=== PATIENT | female | born 1980 | race Hispanic/Latino ===

== ENCOUNTER 2016-05-14 22:04 | Emergency (ER) | payer OTHER ==
[~2016-05-14] VITALS: Ht 152.4 cm; Wt 54.4 kg
[2016-05-14 23:10] LABS: MEAN CORPUSCULAR HEMOGLOBIN 29.9 pg (27.0-33.0); MEAN CORPUSCULAR HGB CONC 33.2 g/dl (32.0-36.5); MEAN CORPUSCULAR VOLUME 89.9 fl (80.0-96.0); RED CELL DISTRIBUTION WIDTH 12.4 % (11.5-14.5); WHITE BLOOD COUNT 7.7 K/mm3 (4.0-10.0)
[2016-05-14 23:36] LABS: ANION GAP 8 MEQ/L (8-16); BLOOD UREA NITROGEN 18 MG/DL (7-18); CALCIUM LEVEL 8.4 MG/DL (8.5-10.1); CARBON DIOXIDE LEVEL 25 MEQ/L (21-32); CHLORIDE LEVEL 108 MEQ/L (98-107); CREATININE FOR GFR 0.51 MG/DL (0.55-1.02); GLOMERULAR FILTRATION RATE > 60.0 (>60); GLUCOSE, FASTING 87 MG/DL (70-105); HCG, SERUM QUANTITATIVE 107 MIU/ML; POTASSIUM SERUM 4.1 MEQ/L (3.5-5.1); SODIUM LEVEL 141 MEQ/L (136-145)
--- NOTE | 2016-05-15 00:30 | REPUSA ---
Clinical history: bleeding. Findings: Real-time transabdominal and transvaginal ultrasound images of the pelvis were obtained. An anteverted uterus is noted, measuring 9.4 x 6.7 x 3.7 cm. The uterus demonstrates normal echotexture and echogenicity. The endometrial stripe measures 7 mm and is within normal limit. There is no evide nce of an intrauterine gestation s. The right ovary measures 3.7 x 3.2 x 3.2 cm. There is a 2.6 cm co mplex right ovarian cyst noted. The left ovary measures 3.6 x 1.5 x 1.9 cm. There is a 1.5 cm simple left renal cyst. No adnexal masses are seen. Color Doppler flow is seen within both ovaries. There is a small on of free fluid in the left adnexa. Impression: 1. No evidence of any intrauterine gestation. 2. Complex likely hemorrhagic lesion in the right ovary. 3. Simple left ovarian cyst, likely a corpus luteum cyst. 4. Small amount of free fluid in the left adnexa. 5. With this conglomeration of findings, ectopic in the right ovary cannot be excluded. Dif ferential diagnosis also includes early and missed . Follow-up with serial serum be ta hCG levels is recommended for further evaluation. ER physician was notified of these findings at 12:21 AM on 05/15/2016.
[2016-05-15 01:23] LABS: AST/SGOT 12 U/L (15-37)
[2016-05-15 01:24] LABS: ALBUMIN/GLOBULIN RATIO 1.21 (1.00-1.93); ALKALINE PHOSPHATASE 62 U/L (45-117); ALT/SGPT 17 U/L (12-78); BILIRUBIN,DIRECT < 0.1 MG/DL (0.0-0.2); BILIRUBIN,TOTAL 0.1 MG/DL (0.2-1.0); TOTAL PROTEIN 7.3 GM/DL (6.4-8.2)
[2016-05-15] MEDS ORDERED: METHOTREXATE 50MG/2ML VIAL (J9260) IM SCH (01:30)
--- NOTE | 2016-05-15 02:38 | EDDOCDS ---
Physician Documentation [facility] Name: Jacquelin Rendon Age: 35 yrs Sex: Female : 1980 Arrival Date: 05/14/2016 Time: 22:04 Bed I1 / M1 Private MD: Other - Complete Info On Cds Disposition: 05/15/16 02:15 Discharged to Home/Self Care. Impression: Ectopic - right adnexal . - Condition is Stable. - Discharge Instructions: Ectopic , Methotrexate Treatment for an Ectopic . - Medication Reconciliation, Local Pharmacy Hours form. - Follow up: Marine Menjivar; When: Call to arrange an appointment; Reason: Recheck today's complaints, Continuance of care. - Problem is new. - Symptoms are unchanged. Historical: - Allergies: no known allergies; - Home Meds: 1. fluoxetine 20 mg Oral cap 1 cap once daily (Last dose: 05/14/2016) - PMHx: Depression; - PSHx: Cesearean Section; - Social history: Smoking status: Patient uses tobacco products, current every day smoker. Patient uses alcohol occasionally. Patient/guardian denies using street drugs, No barriers to communication noted, The patient speaks fluent Italian, Speaks appropriately for age. - Family history: Not pertinent. - : The pt / caregiver states he / she is not on anticoagulants. Home medication list is obtained from the patient. - Exposure Risk Screening:: None identified. 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 (152.40 cm); Pain 04/13; 05/15 00:51 Weight 54.43 kg / 120 lbs; kas2 02:32 BP 115 / 63; Pulse 80; Resp 16; Temp 99.1; Pulse Ox 97% on R/A; Pain 04/13; ld5 00:51 Body Mass Index 23.44 (54.43 kg, 152.40 cm) kas2 MDM: 05/14 22:55 Complete Blood Count Ordered. EDMS 22:55 Hcg, Serum Quantitative Ordered. EDMS 22:55 Urinalysis Ordered. EDMS 22:55 BMP Ordered. EDMS 22:56 US 1st trimester Ordered. EDMS 22:56 Type & Screen Ordered. EDMS 23:10 Financial registration complete. pm4 23:21 COUNTS INCLUDE 234 BEDS AT THE [facility] Payment Agreement was scanned into [employer] and attached to record. pm4 23:42 Urinalysis Reviewed. mo1 23:42 Hcg, Serum Quantitative Reviewed. mo1 23:42 Complete Blood Count Reviewed. mo1 23:42 BMP Reviewed. mo1 23:58 TRANSVAGINAL US Ordered. EDMS 05/15 00:10 Type & Screen Reviewed. mo1 00:58 LIVER PROFILE Ordered. EDMS 01:00 BMP Reviewed. mo1 01:04 Consents was scanned into [employer] and attached to record. ajs 01:16 LIVER PROFILE Reviewed. ck7 01:16 Hcg, Serum Quantitative Reviewed. ck7 01:16 US 1st trimester Reviewed. ck7 01:49 Other: Methotrexate order was scanned into [employer] and attached to record. slm 01:51 Misc. Nursing Order ordered. ld5 01:51 BMP Reviewed. ck7 01:51 LIVER PROFILE Reviewed. ck7 01:51 Hcg, Serum Quantitative Reviewed. ck7 Signatures: Dispatcher [employer] EDMS Jenny Mike RN RN ld5 Hoa Nicole Christopher, RPA-C RPA-Cck7 Kacey Munguia, RN RN ttb Sohan Elder, PA PA mo1 Myah Contreras,SERVICE STATION MANAGER SERVICE STATION MANAGER slm Rufus Rodriguez, Reg Reg pm4 The chart was reviewed and I authenticate all verbal orders and agree with the evaluation and treatment provided.Corrections: (The following items were deleted from the chart) 05/14 22:54 22:54 Undress patient appropriately for examination ordered. mo1 mo1 05/15 00:57 00:55 LIVER PROFILE+LAB ordered. EDFL EDMS Attachments: 05/14 23:21 COUNTS INCLUDE 234 BEDS AT THE [facility] Payment Agreement pm4 MTDD
--- NOTE | 2016-05-15 02:38 | EDDOCDS ---
Nurse's Notes [facility] Name: Jacquelin Rendon Age: 35 yrs Sex: Female : 1980 Arrival Date: 05/14/2016 Time: 22:04 Bed I1 / M1 Private MD: Other - Complete Info On Cds Diagnosis: Ectopic -right adnexal Presentation: 05/14 22:08 Presenting complaint: Patient states: she was diagnosed with miscarriage 2 weeks ago. ttb Still having vaginal bleeding : however HCG levels increased slightly today from previous reading 2 weeks ago. Pt denies pain but was advised to come to r/o ectopic. Risk factors: the patient reports moderate vaginal bleeding. Adult Sepsis Screening: The patient does not have new or worsening altered mentation. Patient's respiratory rate is less than 22. Systolic blood pressure is greater than 100. Patient has a qSOFA score of 0- Negative Sepsis Screen. Suicide/Homicide risk assessment- the patient denies having any suicidal and/or homicidal ideations and does not present with any other emotional, behavioral or mental health complaints. 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 Transition of care: patient was not received from another setting of care. 22:08 Acuity: MATTEO Level 3 ttb 22:08 Method Of Arrival: Walkin/Carried/Asstd ttb Triage Assessment: 22:11 General: Appears in no apparent distress, well nourished, well groomed, Behavior is ttb appropriate for age, cooperative, pleasant. Pain: Denies pain. HIV screening NA for this visit Offered previously. Neurological: Level of Consciousness is awake, alert. Cardiovascular: Chest pain is denied. Respiratory: No deficits noted. Airway is patent Denies cough, shortness of breath. GI: Denies nausea, vomiting, pain. : Reports vaginal bleeding that is moderate flow light flow. Derm: Skin is normal. 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 fluoxetine 20 mg Oral cap 1 cap once daily (Last dose: 05/14/2016) - PMHx: Depression; - PSHx: Cesearean Section; - Social history: Smoking status: Patient uses tobacco products, current every day smoker. Patient uses alcohol occasionally. Patient/guardian denies using street drugs, No barriers to communication noted, The patient speaks fluent Syrian, Speaks appropriately for age. - Family history: Not pertinent. - : The pt / caregiver states he / she is not on anticoagulants. Home medication list is obtained from the patient. - Exposure Risk Screening:: None identified. Screenin/11 00:04 Screening information is obtained from the patient. Fall risk: No risks identified. kas2 Assistance ADL's: requires no assistance with activities of daily living. Abuse/DV Screen: The patient / caregiver reports he/she is: not in a situation that causes fear, pain or injury. Nutritional screening: No deficits noted. Advance Directives: Currently, there is no health care proxy. There is no active DNR order. There is no living will. There is no Power of Geriatrics Physician. home support is adequate. Assessment: 00:03 General: Appears in no apparent distress, uncomfortable, well nourished, well groomed, kas2 Behavior is appropriate for age, cooperative. Pain: Location: abdomen Pain currently is 4 out of 10 on a pain scale. Neurological: Level of Consciousness is awake, alert, Oriented to person, place, time. Cardiovascular: Rhythm is regular. Respiratory: Airway is patent Respiratory effort is even, unlabored, Respiratory pattern is regular, symmetrical. GI: Abdomen is flat, non- distended Bowel sounds present X 4 quads. Abd is tender to palpation X 4 quads. Derm: Skin is intact, Skin is dry, Skin is normal, Skin temperature is warm. 00:42 General: OB physician in to assess patient at this time.. kas2 00:42 General: Dr. Menjivar in to assess pt. ld5 01:51 General: Methotrexate administered. Will monitor pt for 20 minutes prior to discharge. ld5 02:32 General: Pt sitting up in bed. No apparent distress. No signs/symptoms of reaction to ld5 methotrexate. Methotrexate discharge paperwork discussed with pt and all questions answered. Pt aware of follow-up plans. Vital Signs: 05/14 22:06 BP 120 / 68; Pulse 87; Resp 16; Temp 98.6(T); Pulse Ox 100% on R/A; Weight 54.43 kg; sew Height 60 in. (152.40 cm); Pain 04/13; 05/15 00:51 Weight 54.43 kg; kas2 02:32 BP 115 / 63; Pulse 80; Resp 16; Temp 99.1; Pulse Ox 97% on R/A; Pain 1/10; ld5 00:51 Body Mass Index 23.44 (54.43 kg, 152.40 cm) [facility] Vitals: 05/14 22:06 Log In Time: May 14, 2016 at 22:05. [facility] [place] ED Course: 22:06 Patient visited by Ting Inman. sew 22:06 Other - Complete Info On Cds is Private Physician. sew 22:06 Patient moved to Waiting sew 22:07 Patient visited by Ting Inman. sew 22:07 Patient moved to Pre RCE sew 22:10 Triage Initiated ttb 22:12 Patient visited by Kacey Munguia RN. ttb 22:12 Patient moved to Triage 1 ttb 22:40 Patient moved to I7 / kas2 22:42 Sohan Elder PA is PHCP. mo1 22:42 Edy Menendez DO is Attending Physician. mo1 22:42 Patient moved to Triage 1 ajs 22:43 Patient visited by Sohan Elder PA. mo1 23:07 BMP Sent. mcp 23:07 Complete Blood Count Sent. mcp 23:07 Hcg, Serum Quantitative Sent. mcp 23:07 Type & Screen Sent. mcp 23:07 Urinalysis Sent. mcp 23:08 Patient moved to TR1 mcp 23:19 Patient name changed from Jacquelin\S\\S\Justice\S\ to Jacquelin\S\Smita\S\Justice. EDMS 23:21 [place] Payment Agreement was scanned into [employer] and attached to record. pm4 23:47 Patient moved to I5 / M5 ld5 23:53 Patient visited by Marilee Forbes RN. kas2 02 00:04 Patient visited by Marilee Forbes RN. kas2 00:12 Patient moved to I1 / M1 ajs 00:40 Assist provider with pelvic exam: Performed by Sohan OWENS Patient tolerated ld5 well. 00:42 Patient visited by Jenny Mike,YARELI. ld5 00:42 Patient visited by Marilee Forbes RN. kas2 00:46 US 1st trimester Returned. EDMS 00:52 Patient visited by Marilee Forbes RN. kas2 01:04 Patient visited by Hoa Nicole. ajs 01:04 Consents was scanned into [employer] and attached to record. ajs 01:13 PHCP role handed off by Sohan Elder PA ck7 01:13 Aidan Bowen RPA-C is PHCP. ck7 01:38 Patient visited by Marilee Forbes RN. kas2 01:49 Other: Methotrexate order was scanned into [employer] and attached to record. slm 01:52 Patient visited by Jenny Mike RN. ld5 02:15 Marine Menjivar MD is Referral Physician. ck7 02:32 The patient / caregiver is instructed regarding the plan of care and ED course. Patient ld5 has correct armband on for positive identification. 02:32 No IV's were initiated during this patient's visit. ld5 02:36 Patient visited by Jenny Mike RN. ld5 Attachments: 05/15 01:04 Consents ajs Order Results: Lab Order: Complete Blood Count; SPEC'M 05/14/16 23:01 Test: WHITE BLOOD COUNT; Value: 7.7; Range: 4.0-10.0; Units: K/mm3; Status: F Test: RED BLOOD COUNT; Value: 4.19; Range: 4.00-5.40; Units: M/mm3; Status: F Test: HEMOGLOBIN; Value: 12.5; Range: 12.0-16.0; Units: g/dl; Status: F Test: HEMATOCRIT; Value: 37.7; Range: 36.0-47.0; Units: %; Status: F Test: MEAN CORPUSCULAR VOLUME; Value: 89.9; Range: 80.0-96.0; Units: fl; Status: F Test: MEAN CORPUSCULAR HEMOGLOBIN; Value: 29.9; Range: 27.0-33.0; Units: pg; Status: F Test: MEAN CORPUSCULAR HGB CONC; Value: 33.2; Range: 32.0-36.5; Units: g/dl; Status: F Test: RED CELL DISTRIBUTION WIDTH; Value: 12.4; Range: 11.5-14.5; Units: %; Status: F Test: PLATELET COUNT, AUTOMATED; Value: 251; Range: 150-450; Units: k/mm3; Status: F Lab Order: Hcg, Serum Quantitative; SPEC'M 05/14/16 23:01 Test: HCG, SERUM QUANTITATIVE; Value: 107; Units: MIU/ML; Status: F Test Note: ; GESTATIONAL AGE APPROXIMATE HCG RANGE (MIU/ML) 0.2-1 WEEK 5-50 1-2 WEEKS 50-500 2-3 WEEKS 100-5,000 3-4 WEEKS 500-10,000 4-5 WEEKS 1,000-50,000 5-6 WEEKS 10,000-100,000 6-8 WEEKS 15,000-200,000 2-3 MONTHS 10,000-100,000 NON FEMALES LESS THAN 3.0 Patient samples may contain human heterophilic antibodies that could react with immunoassays to give falsely elevated or depressed results. This assay has been designed to minimize interference from heterophilic antibodies. Elevated hCG levels have also been associated with trophoblastic disease and nontrophoblastic neoplasms. The possibility of having these diseases should be considered before a diagnosis of is made. This test is not intended for use as a surrogate marker for aiding in the diagnosis or monitoring the treatment of cancer patients. [employer] [place] methodology. Lab Order: Type & Screen; [facility] 05/14/16 23: Test: BLOOD TYPE; Value: O POS; Status: F Test: AB SCREEN (INDIRECT LAZARO)VIS; Value: NEGATIVE; Status: F Lab Order: Urinalysis; [facility] 05/14/16 23: Test: APPEARANCE, URINE; Value: CLEAR; Range: CLEAR; Status: F Test: COLOR, URINE; Value: YELLOW; Range: YELLOW; Status: F Test: PH,URINE; Value: 5.0; Range: 5.0-9.0; Units: UNITS; Status: F Test: SPECIFIC GRAVITY URINE AUTO; Value: 1.027; Range: 1.002-1.035; Status: F Test: PROTEIN, URINE AUTO; Value: NEGATIVE; Range: NEGATIVE; Units: mg/dL; Status: F Test: GLUCOSE, URINE (UA) AUTO; Value: NEGATIVE; Range: NEGATIVE; Units: mg/dL; Status: F Test: KETONE, URINE AUTO; Value: NEGATIVE; Range: NEGATIVE; Units: mg/dL; Status: F Test: UROBILINOGEN, URINE AUTO; Value: 0.2; Range: 0.0-2.0; Units: mg/dL; Status: F Test: BILIRUBIN, URINE AUTO; Value: NEGATIVE; Range: NEGATIVE; Status: F Test: NITRITE, URINE AUTO; Value: NEGATIVE; Range: NEGATIVE; Status: F Test: LEUKOCYTE ESTERASE, URINE AUTO; Value: NEGATIVE; Range: NEGATIVE; Status: F Test: BLOOD, URINE BLOOD; Value: NEGATIVE; Range: NEGATIVE; Status: F Test: WBC, URINE AUTO; Value: 1; Range: 0-3; Units: /HPF; Status: F Test: RBC, URINE AUTO; Value: 3; Range: 0-3; Units: /HPF; Status: F Test: BACTERIA, URINE AUTO; Value: NEGATIVE; Range: NEGATIVE; Status: F Test: SQUAMOUS EPITHELIAL CELL UR AU; Value: 0; Range: 0-6; Units: /HPF; Status: F Test: MUCUS, URINE; Value: SMALL; Range: NEGATIVE; Status: F Test: HYALINE CAST, URINE AUTO; Value: 0; Range: 0-1; Units: /LPF; Status: F Lab Order: [facility]; SPEC'M 05/14/16 23:01 Test: GLUCOSE, FASTING; Value: 87; Range: 70-105; Units: MG/DL; Status: F Test: BLOOD UREA NITROGEN; Value: 18; Range: 7-18; Units: MG/DL; Status: F Test: CREATININE FOR GFR; Value: 0.51; Range: 0.55-1.02; Abnormal: Below low normal; Units: MG/DL; Status: F Test: GLOMERULAR FILTRATION RATE; Value: > 60.0; Range: >60; Status: F Test: SODIUM LEVEL; Value: 141; Range: 136-145; Units: MEQ/L; Status: F Test: POTASSIUM SERUM; Value: 4.1; Range: 3.5-5.1; Units: MEQ/L; Status: F Test: CHLORIDE LEVEL; Value: 108; Range: 98-107; Abnormal: Above high normal; Units: MEQ/L; Status: F Test: CARBON DIOXIDE LEVEL; Value: 25; Range: 21-32; Units: MEQ/L; Status: F Test: ANION GAP; Value: 8; Range: 8-16; Units: MEQ/L; Status: F Test: CALCIUM LEVEL; Value: 8.4; Range: 8.5-10.1; Abnormal: Below low normal; Units: MG/DL; Status: F Test Note: ; Units are mL/min/1.73 m2 Chronic Kidney Disease Staging per NKF: Stage I & II GFR >=60 Normal to Mildly Decreased Stage III GFR 30-59 Moderately Decreased Stage IV GFR 15-29 Severely Decreased Stage V GFR <15 Very Little GFR Left ESRD GFR <15 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 Lab Order: LIVER PROFILE; [facility] 05/14/16 23:01 Test: AST/SGOT; Value: 12; Range: 15-37; Abnormal: Below low normal; Units: U/L; Status: F Test: ALT/SGPT; Value: 17; Range: 12-78; Units: U/L; Status: F Test: ALKALINE PHOSPHATASE; Value: 62; Range: 45-117; Units: U/L; Status: F Test: BILIRUBIN,TOTAL; Value: 0.1; Range: 0.2-1.0; Abnormal: Below low normal; Units: MG/DL; Status: F Test: BILIRUBIN,DIRECT; Value: < 0.1; Range: 0.0-0.2; Units: MG/DL; Status: F Test: TOTAL PROTEIN; Value: 7.3; Range: 6.4-8.2; Units: GM/DL; Status: F Test: ALBUMIN; Value: 4.0; Range: 3.2-5.2; Units: GM/DL; Status: F Test: ALBUMIN/GLOBULIN RATIO; Value: 1.21; Range: 1.00-1.93; Status: F Radiology Order: US 1st trimester Test: US 1st trimester REASON FOR EXAMINATION: recent miscarriage, still increasing hcg; ; Clinical history: bleeding.; Findings: Real-time transabdominal and transvaginal ultrasound images of the pelvis were obtained. An; anteverted uterus is noted, measuring 9.4 x 6.7 x 3.7 cm. The uterus demonstrates normal echotexture; and echogenicity. The endometrial stripe measures 7 mm and is within normal limit. There is no evide; nce of an intrauterine gestation s. The right ovary measures 3.7 x 3.2 x 3.2 cm. There is a 2.6 cm co; mplex right ovarian cyst noted. The left ovary measures 3.6 x 1.5 x 1.9 cm. There is a 1.5 cm simple; left renal cyst. No adnexal masses are seen. Color Doppler flow is seen within both ovaries. There is; a small on of free fluid in the left adnexa.; Impression:; 1. No evidence of any intrauterine gestation.; 2. Complex likely hemorrhagic lesion in the right ovary.; 3. Simple left ovarian cyst, likely a corpus luteum cyst.; 4. Small amount of free fluid in the left adnexa.; 5. With this conglomeration of findings, ectopic in the right ovary cannot be excluded. Dif; ferential diagnosis also includes early and missed . Follow-up with serial serum be; ta hCG levels is recommended for further evaluation.; ER physician was notified of these findings at 12:21 AM on 05/15/2016.; ; Outcome: 02:15 Discharge ordered by Provider. ck7 02:36 Discharge Assessment: Patient awake, alert and oriented x 3. No cognitive and/or ld5 functional deficits noted. Patient verbalized understanding of disposition instructions. patient administered narcotics - no. The following High Risk Discharge criteria are identified: None. Discharged to home ambulatory. Condition: stable. Discharge instructions given to patient, Instructed on discharge instructions, follow up and referral plans. Demonstrated understanding of instructions, Pt was receptive of discharge instructions/ teaching. Ultrasound Study completed. Property :Personal belongings accompany Pt. 02:36 Patient left the ED. ld5 Signatures: Dispatcher [employer] EDNat Lan RN Jenny Acosta mcp, RN RN [id number] Hoa Nicole Christopher, EFREM-C RPA-Cck7 Ting Inman Teresa RN RN ttb Sohan Elder PA PA mo1 Myah Contreras LPN LPN slm Smith, KimRN RN summer2 Rufus Rodriguez, Reg Reg pm4 Corrections: (The following items were deleted from the chart) 00:57 00:55 LIVER PROFILE+LAB sent. [facility] JENY MTDD
--- NOTE | 2016-05-17 03:37 | EDDOCDS ---
Nurse's Notes [facility] Name: Jacquelin Rendon Age: 35 yrs Sex: Female : 1980 Arrival Date: 05/14/2016 Time: 22:04 Bed I1 / M1 Private MD: Other - Complete Info On Cds Diagnosis: Ectopic -right adnexal Presentation: 05/14 22:08 Presenting complaint: Patient states: she was diagnosed with miscarriage 2 weeks ago. ttb Still having vaginal bleeding : however HCG levels increased slightly today from previous reading 2 weeks ago. Pt denies pain but was advised to come to r/o ectopic. Risk factors: the patient reports moderate vaginal bleeding. Adult Sepsis Screening: The patient does not have new or worsening altered mentation. Patient's respiratory rate is less than 22. Systolic blood pressure is greater than 100. Patient has a qSOFA score of 0- Negative Sepsis Screen. Suicide/Homicide risk assessment- the patient denies having any suicidal and/or homicidal ideations and does not present with any other emotional, behavioral or mental health complaints. 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 Transition of care: patient was not received from another setting of care. 22:08 Acuity: MATTEO Level 3 ttb 22:08 Method Of Arrival: Walkin/Carried/Asstd ttb Triage Assessment: 22:11 General: Appears in no apparent distress, well nourished, well groomed, Behavior is ttb appropriate for age, cooperative, pleasant. Pain: Denies pain. HIV screening NA for this visit Offered previously. Neurological: Level of Consciousness is awake, alert. Cardiovascular: Chest pain is denied. Respiratory: No deficits noted. Airway is patent Denies cough, shortness of breath. GI: Denies nausea, vomiting, pain. : Reports vaginal bleeding that is moderate flow light flow. Derm: Skin is normal. 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 fluoxetine 20 mg Oral cap 1 cap once daily (Last dose: 05/14/2016) - PMHx: Depression; - PSHx: Cesearean Section; - Social history: Smoking status: Patient uses tobacco products, current every day smoker. Patient uses alcohol occasionally. Patient/guardian denies using street drugs, No barriers to communication noted, The patient speaks fluent [place], Speaks appropriately for age. - Family history: Not pertinent. - : The pt / caregiver states he / she is not on anticoagulants. Home medication list is obtained from the patient. - Exposure Risk Screening:: None identified. Screenin/11 00:04 Screening information is obtained from the patient. Fall risk: No risks identified. kas2 Assistance ADL's: requires no assistance with activities of daily living. Abuse/DV Screen: The patient / caregiver reports he/she is: not in a situation that causes fear, pain or injury. Nutritional screening: No deficits noted. Advance Directives: Currently, there is no health care proxy. There is no active DNR order. There is no living will. There is no Power of Welding Rod Coater. home support is adequate. Assessment: 00:03 General: Appears in no apparent distress, uncomfortable, well nourished, well groomed, kas2 Behavior is appropriate for age, cooperative. Pain: Location: abdomen Pain currently is 4 out of 10 on a pain scale. Neurological: Level of Consciousness is awake, alert, Oriented to person, place, time. Cardiovascular: Rhythm is regular. Respiratory: Airway is patent Respiratory effort is even, unlabored, Respiratory pattern is regular, symmetrical. GI: Abdomen is flat, non- distended Bowel sounds present X 4 quads. Abd is tender to palpation X 4 quads. Derm: Skin is intact, Skin is dry, Skin is normal, Skin temperature is warm. 00:42 General: OB physician in to assess patient at this time.. kas2 00:42 General: Dr. Menjivar in to assess pt. ld5 01:51 General: Methotrexate administered. Will monitor pt for 20 minutes prior to discharge. ld5 02:32 General: Pt sitting up in bed. No apparent distress. No signs/symptoms of reaction to ld5 methotrexate. Methotrexate discharge paperwork discussed with pt and all questions answered. Pt aware of follow-up plans. Vital Signs: 05/14 22:06 BP 120 / 68; Pulse 87; Resp 16; Temp 98.6(T); Pulse Ox 100% on R/A; Weight 54.43 kg; sew Height 60 in. (152.40 cm); Pain 04/13; 05/15 00:51 Weight 54.43 kg; kas2 02:32 BP 115 / 63; Pulse 80; Resp 16; Temp 99.1; Pulse Ox 97% on R/A; Pain 1/10; ld5 00:51 Body Mass Index 23.44 (54.43 kg, 152.40 cm) [facility] Vitals: 05/14 22:06 Log In Time: May 14, 2016 at 22:05. [facility] ED Course: 22:06 Patient visited by Ting Inman. sew 22:06 Other - Complete Info On Cds is Private Physician. sew 22:06 Patient moved to Waiting sew 22:07 Patient visited by Ting Inman. sew 22:07 Patient moved to Pre RCE sew 22:10 Triage Initiated ttb 22:12 Patient visited by Kacey Munguia RN. ttb 22:12 Patient moved to Triage 1 ttb 22:40 Patient moved to I7 / kas2 22:42 Sohan Elder PA is PHCP. mo1 22:42 Edy Menendez DO is Attending Physician. mo1 22:42 Patient moved to Triage 1 ajs 22:43 Patient visited by Sohan Elder PA. mo1 23:07 BMP Sent. mcp 23:07 Complete Blood Count Sent. mcp 23:07 Hcg, Serum Quantitative Sent. mcp 23:07 Type & Screen Sent. mcp 23:07 Urinalysis Sent. mcp 23:08 Patient moved to TR1 mcp 23:19 Patient name changed from Jacquelin\S\\S\Justice\S\ to Jacquelin\S\Smita\S\Justice. EDMS 23:21 [facility] Payment Agreement was scanned into [employer] and attached to record. pm4 23:47 Patient moved to I5 / M5 ld5 23:53 Patient visited by Marilee Forbes RN. kas2 02 00:04 Patient visited by Marilee Forbes RN. kas2 00:12 Patient moved to I1 / M1 ajs 00:40 Assist provider with pelvic exam: Performed by Sohan OWENS Patient tolerated ld5 well. 00:42 Patient visited by Jenny Mike,YARELI. ld5 00:42 Patient visited by Marilee Forbes RN. kas2 00:46 US 1st trimester Returned. EDMS 00:52 Patient visited by Marilee Forbes RN. kas2 01:04 Patient visited by Hoa Nicole. ajs 01:04 Consents was scanned into [employer] and attached to record. ajs 01:13 PHCP role handed off by Sohan Elder PA ck7 01:13 Aidan Bowen RPA-C is PHCP. ck7 01:38 Patient visited by Marilee Forbes RN. kas2 01:49 Other: Methotrexate order was scanned into [employer] and attached to record. slm 01:52 Patient visited by Jenny Mike RN. ld5 02:15 Marine Menjivar MD is Referral Physician. ck7 02:32 The patient / caregiver is instructed regarding the plan of care and ED course. Patient ld5 has correct armband on for positive identification. 02:32 No IV's were initiated during this patient's visit. ld5 02:36 Patient visited by Jenny Mike RN. ld5 10:51 T-Sheet-- Draft Copy was scanned into Green[employer] and attached to record. gb Attachments: 05/15 01:04 Consents ajs Order Results: Lab Order: Complete Blood Count; SPEC'M 05/14/16 23:01 Test: WHITE BLOOD COUNT; Value: 7.7; Range: 4.0-10.0; Units: K/mm3; Status: F Test: RED BLOOD COUNT; Value: 4.19; Range: 4.00-5.40; Units: M/mm3; Status: F Test: HEMOGLOBIN; Value: 12.5; Range: 12.0-16.0; Units: g/dl; Status: F Test: HEMATOCRIT; Value: 37.7; Range: 36.0-47.0; Units: %; Status: F Test: MEAN CORPUSCULAR VOLUME; Value: 89.9; Range: 80.0-96.0; Units: fl; Status: F Test: MEAN CORPUSCULAR HEMOGLOBIN; Value: 29.9; Range: 27.0-33.0; Units: pg; Status: F Test: MEAN CORPUSCULAR HGB CONC; Value: 33.2; Range: 32.0-36.5; Units: g/dl; Status: F Test: RED CELL DISTRIBUTION WIDTH; Value: 12.4; Range: 11.5-14.5; Units: %; Status: F Test: PLATELET COUNT, AUTOMATED; Value: 251; Range: 150-450; Units: k/mm3; Status: F Lab Order: Hcg, Serum Quantitative; [facility] 05/14/16 23:01 Test: HCG, SERUM QUANTITATIVE; Value: 107; Units: MIU/ML; Status: F Test Note: ; GESTATIONAL AGE APPROXIMATE HCG RANGE (MIU/ML) 0.2-1 WEEK 5-50 1-2 WEEKS 50-500 2-3 WEEKS 100-5,000 3-4 WEEKS 500-10,000 4-5 WEEKS 1,000-50,000 5-6 WEEKS 10,000-100,000 6-8 WEEKS 15,000-200,000 2-3 MONTHS 10,000-100,000 NON FEMALES LESS THAN 3.0 Patient samples may contain human heterophilic antibodies that could react with immunoassays to give falsely elevated or depressed results. This assay has been designed to minimize interference from heterophilic antibodies. Elevated hCG levels have also been associated with trophoblastic disease and nontrophoblastic neoplasms. The possibility of having these diseases should be considered before a diagnosis of is made. This test is not intended for use as a surrogate marker for aiding in the diagnosis or monitoring the treatment of cancer patients. [employer] methodology. Lab Order: Type & Screen; [facility] 05/14/16 23:01 Test: BLOOD TYPE; Value: O POS; Status: F Test: AB SCREEN (INDIRECT LAZARO)VIS; Value: NEGATIVE; Status: F Lab Order: Urinalysis; [facility] 05/14/16 23:01 Test: APPEARANCE, URINE; Value: CLEAR; Range: CLEAR; Status: F Test: COLOR, URINE; Value: YELLOW; Range: YELLOW; Status: F Test: PH,URINE; Value: 5.0; Range: 5.0-9.0; Units: UNITS; Status: F Test: SPECIFIC GRAVITY URINE AUTO; Value: 1.027; Range: 1.002-1.035; Status: F Test: PROTEIN, URINE AUTO; Value: NEGATIVE; Range: NEGATIVE; Units: mg/dL; Status: F Test: GLUCOSE, URINE (UA) AUTO; Value: NEGATIVE; Range: NEGATIVE; Units: mg/dL; Status: F Test: KETONE, URINE AUTO; Value: NEGATIVE; Range: NEGATIVE; Units: mg/dL; Status: F Test: UROBILINOGEN, URINE AUTO; Value: 0.2; Range: 0.0-2.0; Units: mg/dL; Status: F Test: BILIRUBIN, URINE AUTO; Value: NEGATIVE; Range: NEGATIVE; Status: F Test: NITRITE, URINE AUTO; Value: NEGATIVE; Range: NEGATIVE; Status: F Test: LEUKOCYTE ESTERASE, URINE AUTO; Value: NEGATIVE; Range: NEGATIVE; Status: F Test: BLOOD, URINE BLOOD; Value: NEGATIVE; Range: NEGATIVE; Status: F Test: WBC, URINE AUTO; Value: 1; Range: 0-3; Units: /HPF; Status: F Test: RBC, URINE AUTO; Value: 3; Range: 0-3; Units: /HPF; Status: F Test: BACTERIA, URINE AUTO; Value: NEGATIVE; Range: NEGATIVE; Status: F Test: SQUAMOUS EPITHELIAL CELL UR AU; Value: 0; Range: 0-6; Units: /HPF; Status: F Test: MUCUS, URINE; Value: SMALL; Range: NEGATIVE; Status: F Test: HYALINE CAST, URINE AUTO; Value: 0; Range: 0-1; Units: /LPF; Status: F Lab Order: [facility]; SPEC'M 05/14/16 23:01 Test: GLUCOSE, FASTING; Value: 87; Range: 70-105; Units: MG/DL; Status: F Test: BLOOD UREA NITROGEN; Value: 18; Range: 7-18; Units: MG/DL; Status: F Test: CREATININE FOR GFR; Value: 0.51; Range: 0.55-1.02; Abnormal: Below low normal; Units: MG/DL; Status: F Test: GLOMERULAR FILTRATION RATE; Value: > 60.0; Range: >60; Status: F Test: SODIUM LEVEL; Value: 141; Range: 136-145; Units: MEQ/L; Status: F Test: POTASSIUM SERUM; Value: 4.1; Range: 3.5-5.1; Units: MEQ/L; Status: F Test: CHLORIDE LEVEL; Value: 108; Range: 98-107; Abnormal: Above high normal; Units: MEQ/L; Status: F Test: CARBON DIOXIDE LEVEL; Value: 25; Range: 21-32; Units: MEQ/L; Status: F Test: ANION GAP; Value: 8; Range: 8-16; Units: MEQ/L; Status: F Test: CALCIUM LEVEL; Value: 8.4; Range: 8.5-10.1; Abnormal: Below low normal; Units: MG/DL; Status: F Test Note: ; Units are mL/min/1.73 m2 Chronic Kidney Disease Staging per NKF: Stage I & II GFR >=60 Normal to Mildly Decreased Stage III GFR 30-59 Moderately Decreased Stage IV GFR 15-29 Severely Decreased Stage V GFR <15 Very Little GFR Left ESRD GFR <15 on DOG CONTROL OFFICER Lab Order: LIVER PROFILE; SPEC'M 05/14/16 23:01 Test: AST/SGOT; Value: 12; Range: 15-37; Abnormal: Below low normal; Units: U/L; Status: F Test: ALT/SGPT; Value: 17; Range: 12-78; Units: U/L; Status: F Test: ALKALINE PHOSPHATASE; Value: 62; Range: 45-117; Units: U/L; Status: F Test: BILIRUBIN,TOTAL; Value: 0.1; Range: 0.2-1.0; Abnormal: Below low normal; Units: MG/DL; Status: F Test: BILIRUBIN,DIRECT; Value: < 0.1; Range: 0.0-0.2; Units: MG/DL; Status: F Test: TOTAL PROTEIN; Value: 7.3; Range: 6.4-8.2; Units: GM/DL; Status: F Test: ALBUMIN; Value: 4.0; Range: 3.2-5.2; Units: GM/DL; Status: F Test: ALBUMIN/GLOBULIN RATIO; Value: 1.21; Range: 1.00-1.93; Status: F Radiology Order: US 1st trimester Test: US 1st trimester REASON FOR EXAMINATION: recent miscarriage, still increasing hcg; ; Clinical history: bleeding.; Findings: Real-time transabdominal and transvaginal ultrasound images of the pelvis were obtained. An; anteverted uterus is noted, measuring 9.4 x 6.7 x 3.7 cm. The uterus demonstrates normal echotexture; and echogenicity. The endometrial stripe measures 7 mm and is within normal limit. There is no evide; nce of an intrauterine gestation s. The right ovary measures 3.7 x 3.2 x 3.2 cm. There is a 2.6 cm co; mplex right ovarian cyst noted. The left ovary measures 3.6 x 1.5 x 1.9 cm. There is a 1.5 cm simple; left renal cyst. No adnexal masses are seen. Color Doppler flow is seen within both ovaries. There is; a small on of free fluid in the left adnexa.; Impression:; 1. No evidence of any intrauterine gestation.; 2. Complex likely hemorrhagic lesion in the right ovary.; 3. Simple left ovarian cyst, likely a corpus luteum cyst.; 4. Small amount of free fluid in the left adnexa.; 5. With this conglomeration of findings, ectopic in the right ovary cannot be excluded. Dif; ferential diagnosis also includes early and missed . Follow-up with serial serum be; ta hCG levels is recommended for further evaluation.; ER physician was notified of these findings at 12:21 AM on 05/15/2016.; ; Outcome: 02:15 Discharge ordered by Provider. ck7 02:36 Discharge Assessment: Patient awake, alert and oriented x 3. No cognitive and/or ld5 functional deficits noted. Patient verbalized understanding of disposition instructions. patient administered narcotics - no. The following High Risk Discharge criteria are identified: None. Discharged to home ambulatory. Condition: stable. Discharge instructions given to patient, Instructed on discharge instructions, follow up and referral plans. Demonstrated understanding of instructions, Pt was receptive of discharge instructions/ teaching. Ultrasound Study completed. Property :Personal belongings accompany Pt. 02:36 Patient left the ED. ld5 Signatures: Dispatcher [employer] EDMS Nat Carr, RN RN Keiko Oh, Reg Reg gb Jenny Mike RN RN ld5 Hoa Nicole Christopher, EFREM-C RPA-Cck7 Ting Inman Teresa RN RN ttb Sohan Elder PA PA mo1 Myah Contreras LPN HIGH SCHOOL BAND DIRECTOR slMarilee TrippRN RN kas2 Rufus Rodriguez, Reg Reg pm4 Corrections: (The following items were deleted from the chart) 00:57 00:55 LIVER PROFILE+LAB sent. kas2 EDMS Chart Complete MTDD
--- NOTE | 2016-05-17 03:37 | EDDOCDS ---
Physician Documentation [facility] Name: Jacquelin Rendon Age: 35 yrs Sex: Female : 1980 Arrival Date: 05/14/2016 Time: 22:04 Bed I1 / M1 Private MD: Other - Complete Info On Cds Disposition: 05/15/16 02:15 Discharged to Home/Self Care. Impression: Ectopic - right adnexal . - Condition is Stable. - Discharge Instructions: Ectopic , Methotrexate Treatment for an Ectopic . - Medication Reconciliation, Local Pharmacy Hours form. - Follow up: Marine Menjivar; When: Call to arrange an appointment; Reason: Recheck today's complaints, Continuance of care. - Problem is new. - Symptoms are unchanged. Historical: - Allergies: no known allergies; - Home Meds: 1. fluoxetine 20 mg Oral cap 1 cap once daily (Last dose: 05/14/2016) - PMHx: Depression; - PSHx: Cesearean Section; - Social history: Smoking status: Patient uses tobacco products, current every day smoker. Patient uses alcohol occasionally. Patient/guardian denies using street drugs, No barriers to communication noted, The patient speaks fluent Latvian, Speaks appropriately for age. - Family history: Not pertinent. - : The pt / caregiver states he / she is not on anticoagulants. Home medication list is obtained from the patient. - Exposure Risk Screening:: None identified. 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 (152.40 cm); Pain 04/13; 05/15 00:51 Weight 54.43 kg / 120 lbs; kas2 02:32 BP 115 / 63; Pulse 80; Resp 16; Temp 99.1; Pulse Ox 97% on R/A; Pain 04/13; ld5 00:51 Body Mass Index 23.44 (54.43 kg, 152.40 cm) kas2 MDM: 05/14 22:55 Complete Blood Count Ordered. EDMS 22:55 Hcg, Serum Quantitative Ordered. EDMS 22:55 Urinalysis Ordered. EDMS 22:55 BMP Ordered. EDMS 22:56 US 1st trimester Ordered. EDMS 22:56 Type & Screen Ordered. EDMS 23:10 Financial registration complete. pm4 23:21 [facility] Payment Agreement was scanned into [employer] and attached to record. pm4 23:42 Urinalysis Reviewed. mo1 23:42 Hcg, Serum Quantitative Reviewed. mo1 23:42 Complete Blood Count Reviewed. mo1 23:42 BMP Reviewed. mo1 23:58 TRANSVAGINAL US Ordered. EDMS 05/15 00:10 Type & Screen Reviewed. mo1 00:58 LIVER PROFILE Ordered. EDMS 01:00 BMP Reviewed. mo1 01:04 Consents was scanned into [employer] and attached to record. ajs 01:16 LIVER PROFILE Reviewed. ck7 01:16 Hcg, Serum Quantitative Reviewed. ck7 01:16 US 1st trimester Reviewed. ck7 01:49 Other: Methotrexate order was scanned into [employer] and attached to record. slm 01:51 Misc. Nursing Order ordered. ld5 01:51 BMP Reviewed. ck7 01:51 LIVER PROFILE Reviewed. ck7 01:51 Hcg, Serum Quantitative Reviewed. ck7 10:51 T-Sheet-- Draft Copy was scanned into [employer] and attached to record. gb Signatures: Dispatcher [employer] EDNV Keiko Saleem, Reg Reg gb Jenny Mike,RN RN ld5 Hoa Nicole Christopher, RPA-C RPA-Cck7 Kacey Munguia RN RN ttb Sohan Elder, PA PA mo1 Myah Contreras LPN FISH BONING MACHINE FEEDER [facility] Rufus Rodriguez, Reg Reg pm4 The chart was reviewed and I authenticate all verbal orders and agree with the evaluation and treatment provided.Corrections: (The following items were deleted from the chart) 05/14 22:54 22:54 Undress patient appropriately for examination ordered. mo1 mo1 05/15 00:57 00:55 LIVER PROFILE+LAB ordered. [facility] EDMS Attachments: 05/14 23:21 [facility] Payment Agreement pm4 10:51 T-Sheet-- Draft Copy gb Chart Complete MTDD
--- NOTE | 2016-05-17 03:37 | EDDOCDS ---
Physician Documentation [facility] Name: Jacquelin Rendon Age: 35 yrs Sex: Female : 1980 Arrival Date: 05/14/2016 Time: 22:04 Bed I1 / M1 Private MD: Other - Complete Info On Cds Disposition: 05/15/16 02:15 Discharged to Home/Self Care. Impression: Ectopic - right adnexal . - Condition is Stable. - Discharge Instructions: Ectopic , Methotrexate Treatment for an Ectopic . - Medication Reconciliation, Local Pharmacy Hours form. - Follow up: Marine Menjivar; When: Call to arrange an appointment; Reason: Recheck today's complaints, Continuance of care. - Problem is new. - Symptoms are unchanged. Historical: - Allergies: no known allergies; - Home Meds: 1. fluoxetine 20 mg Oral cap 1 cap once daily (Last dose: 05/14/2016) - PMHx: Depression; - PSHx: Cesearean Section; - Social history: Smoking status: Patient uses tobacco products, current every day smoker. Patient uses alcohol occasionally. Patient/guardian denies using street drugs, No barriers to communication noted, The patient speaks fluent Japanese, Speaks appropriately for age. - Family history: Not pertinent. - : The pt / caregiver states he / she is not on anticoagulants. Home medication list is obtained from the patient. - Exposure Risk Screening:: None identified. 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 (152.40 cm); Pain 04/13; 05/15 00:51 Weight 54.43 kg / 120 lbs; kas2 02:32 BP 115 / 63; Pulse 80; Resp 16; Temp 99.1; Pulse Ox 97% on R/A; Pain 04/13; ld5 00:51 Body Mass Index 23.44 (54.43 kg, 152.40 cm) kas2 MDM: 05/14 22:55 Complete Blood Count Ordered. EDMS 22:55 Hcg, Serum Quantitative Ordered. EDMS 22:55 Urinalysis Ordered. EDMS 22:55 BMP Ordered. EDMS 22:56 US 1st trimester Ordered. EDMS 22:56 Type & Screen Ordered. EDMS 23:10 Financial registration complete. pm4 23:21 [facility] Payment Agreement was scanned into [employer] and attached to record. pm4 23:42 Urinalysis Reviewed. mo1 23:42 Hcg, Serum Quantitative Reviewed. mo1 23:42 Complete Blood Count Reviewed. mo1 23:42 BMP Reviewed. mo1 23:58 TRANSVAGINAL US Ordered. EDMS 05/15 00:10 Type & Screen Reviewed. mo1 00:58 LIVER PROFILE Ordered. EDMS 01:00 BMP Reviewed. mo1 01:04 Consents was scanned into [employer] and attached to record. ajs 01:16 LIVER PROFILE Reviewed. ck7 01:16 Hcg, Serum Quantitative Reviewed. ck7 01:16 US 1st trimester Reviewed. ck7 01:49 Other: Methotrexate order was scanned into [employer] and attached to record. slm 01:51 Misc. Nursing Order ordered. ld5 01:51 BMP Reviewed. ck7 01:51 LIVER PROFILE Reviewed. ck7 01:51 Hcg, Serum Quantitative Reviewed. ck7 10:51 T-Sheet-- Draft Copy was scanned into makr and attached to record. gb Signatures: Dispatcher [employer] EDNJ Keiko Saleem, Reg Reg gb Jenny Mike,RN RN ld5 Hoa Nicole Christopher, RPA-C RPA-Cck7 Kacey Munguia RN RN ttb Sohan Elder, PA PA mo1 Myah Contreras LPN PLUNGER SHOVEL OPERATOR [facility] Rufus Rodriguez, Reg Reg pm4 The chart was reviewed and I authenticate all verbal orders and agree with the evaluation and treatment provided.Corrections: (The following items were deleted from the chart) 05/14 22:54 22:54 Undress patient appropriately for examination ordered. mo1 mo1 05/15 00:57 00:55 LIVER PROFILE+LAB ordered. [facility] EDMS Attachments: 05/14 23:21 [facility] Payment Agreement pm4 10:51 T-Sheet-- Draft Copy gb Chart Complete MTDD
== END 2016-05-15 02:36 | disposition home or self-care (01) ==
LOC: M ED 22:04
DX: O00.00 Abdominal pregnancy without intrauterine pregnancy (principal); F32.9 Major depressive disorder, single episode, unspecified; Z72.0 Tobacco use; Z79.899 Other long term (current) drug therapy
CPT/HCPCS: 76801; 76817; 80048; 80076; 81001; 84702; 85027; 86850; 86900; 86901; 99284; J9260

== ENCOUNTER 2016-11-15 13:39 | Emergency (ER) | payer OTHER ==
[~2016-11-15] VITALS: Ht 152.4 cm; Wt 55.3 kg
[2016-11-15 13:41] VITALS: BP 112/71
[2016-11-15] MEDS ORDERED: PROZ20CA11 (13:50)
[2016-11-15] MEDS ORDERED: ZOVI800T PO (14:32)
[2016-11-15] MEDS ORDERED: HYDR-3713 PO (14:32)
== END 2016-11-15 14:44 | disposition home or self-care (01) ==
LOC: M ED 13:39
DX: B02.9 Zoster without complications (principal); F99 Mental disorder, not otherwise specified